=== PATIENT | female | born 1995 | race American Indian/Alaskan Native ===

== ENCOUNTER 2019-05-16 21:18 | Emergency (ER) | payer MEDICAID ==
[2019-05-17 00:27] LABS: Basophils % (Auto) 0.3 % (0.0-1.8); Eosinophils # (Auto) 0.1 K/mm3 (0.0-0.4); Eosinophils % (Auto) 0.7 % (0.0-4.3); Hematocrit 35.2 % (30.3-42.9); Hemoglobin 12.2 gm/dl (10.1-14.3); Lymphocytes # (Auto) 1.2 K/mm3 (1.2-5.4); Lymphocytes % (Auto) 14.6 % (13.4-35.0); Mean Corpuscular HGB Conc 35 % (30-34); Mean Corpuscular Volume 96 fl (79-97); Monocytes # (Auto) 1.3 K/mm3 (0.0-0.8); Monocytes % (Auto) 14.7 % (0.0-7.3); Platelet Count 179 K/mm3 (140-440); Red Blood Count 3.67 M/mm3 (3.65-5.03); Red Cell Distribution Width 12.7 % (13.2-15.2)
--- NOTE | 2019-05-17 00:33 | Ultrasound Report ---
OB Ultrasound HISTORY: abdominal pain. TECHNIQUE: Grayscale and color imaging performed. COMPARISON: None FINDINGS: There is a single viable intrauterine gestation which is breech in presentation with heart rate of 152 bpm. Overall EGA is 14 weeks and 3 days by ultrasound compared to 14 weeks and 5 days by clinical age. Estimated delivery date is 11/11/2019. The cervix measures 5.4 cm in length. Placenta is anterior and right lateral. The WU is 5 cm. IMPRESSION: Single viable intrauterine gestation as above. Signer Name: Emil Palumbo MD Signed: 05/17/2019 12:29 AM Workstation Name: [id number]
[2019-05-17] MEDS ORDERED: ACETAMINOPHEN 500 MG TAB PO ONE (01:32)
--- NOTE | 2019-05-17 02:11 | XRay Report ---
Rib series-3 views INDICATION: Left rib pain- fall down the stairs. COMPARISON: None. IMPRESSION: No acute osseous or soft tissue abnormality. Clear lungs with normal heart size. Signer Name: Emil Palumbo MD Signed: 05/17/2019 2:06 AM Workstation Name: [id number]
[2019-05-17 02:43] LABS: Bilirubin,Urine NEG (Negative); Blood,Urine NEG (Negative); Color,Urine Yellow (Yellow); Mucus,Urine 3+ /HPF; Protein,Urine <15 mg/dL mg/dL (Negative); Urobilinogen,Urine < 2.0 mg/dL (<2.0)
--- NOTE | 2019-05-17 02:50 | Emergency Department Report ---
ED Fall HPI - General Chief Complaint: Fall Stated Complaint: PREG Source: patient Mode of arrival: Ambulatory - History of Present Illness Initial Comments: Patient is a A0 23-year-old -U[place]and[place] female with no past medical history and who is approximately 14 weeks gestation who presents to the ED with a complaint of acute onset persistent left lower quadrant abdominal pain and l eft lateral chest wall pain under pain after she slipped and fell down distress when cutting household goods about 6 hours ago. Patient states that the pain has worsened in the last 2 hours especially with any movement or inhalation or any physical activity. Patient denies loss of consciousness, head and neck injuries, back pain, hematuria, hemoptysis, vaginal bleeding, dizziness, syncope, nausea and vomiting, numbness and tingling or weakness in upper or lower extremities bilaterally or headache. 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 denies: headache, neck pain, numbness, weakness, shortness of breath, hematuria, unable to walk, lightheaded, vertigo, confusion - Related Data Previous Rx's Medication Instructions Recorded Last Taken Type Acetylcysteine [Cetylev] 500 mg PO BID #10 tablet.eff 11/22/15 Unknown Rx valACYclovir [Valtrex] 500 mg PO BID #20 tab 12/20/17 Unknown Rx Cyclobenzaprine [Flexeril] 10 mg PO Q8H PRN #15 tablet 05/17/19 Unknown Rx Allergies Allergy/AdvReac Type Severity Reaction Status Date / Time No Known Allergies Allergy Unverified 08/20/13 16:14 ED Review of Systems ROS: Stated complaint: WKS PREG Other details as noted in HPI Constitutional: denies: chills, fever Eyes: denies: eye pain, eye discharge, vision change ENT: denies: ear pain, throat pain Respiratory: denies: cough, shortness of breath, wheezing Cardiovascular: chest pain (left lateral chest pain). denies: palpitations Endocrine: no symptoms reported Gastrointestinal: abdominal pain (LLQ abdominal pain from the fall). denies: nausea, diarrhea Genitourinary: denies: urgency, dysuria, discharge Musculoskeletal: denies: back pain, joint swelling, arthralgia Skin: denies: rash, lesions Neurological: denies: headache, weakness, paresthesias Psychiatric: denies: anxiety, depression Hematological/Lymphatic: denies: easy bleeding, easy bruising ED Past Medical Hx - Past Medical History Previous Medical History?: Yes Hx Congestive Heart Failure: No Hx Diabetes: No Hx Arthritis: (Grandmother) Hx Psychiatric Treatment: Yes (anxiety) Hx Asthma: No Hx COPD: No Hx HIV: No Additional medical history: bronchitis - Surgical History Past Surgical History?: No - Social History Smoking Status: Former Smoker Substance Use Type: None - Medications Home Medications: Home Medications Medication Instructions Recorded Confirmed Last Taken Type Acetylcysteine [Cetylev] 500 mg PO BID #10 tablet.eff 11/22/15 Unknown Rx valACYclovir [Valtrex] 500 mg PO BID #20 tab 12/20/17 Unknown Rx Cyclobenzaprine [Flexeril] 10 mg PO Q8H PRN #15 tablet 05/17/19 Unknown Rx ED Physical Exam - General Limitations: No Limitations General appearance: alert, in no apparent distress - Head Head exam: Present: atraumatic, normocephalic, normal inspection - Eye Eye exam: Present: normal appearance, PERRL, EOMI Pupils: Present: normal accommodation - ENT ENT exam: Present: normal exam, normal orophraynx, mucous membranes moist, TM's normal bilaterally, normal external ear exam - Neck Neck exam: Present: normal inspection, full ROM. Absent: tenderness, lymphadenopathy - Respiratory Respiratory exam: Present: normal lung sounds bilaterally, chest wall tenderness (left lateral rib cage and chest tenderness). Absent: respiratory distress, wheezes, rales, rhonchi, accessory muscle use - Cardiovascular Cardiovascular Exam: Present: regular rate, normal rhythm, normal heart sounds. Absent: systolic murmur, diastolic murmur, rubs, gallop - GI/Abdominal GI/Abdominal exam: Present: soft, tenderness (mildly tender LLQ area), normal bowel sounds. Absent: distended, guarding, rebound, hyperactive bowel sounds, organomegaly - Extremities Exam Extremities exam: Present: normal inspection, full ROM, normal capillary refill - Back Exam Back exam: Present: normal inspection, full ROM. Absent: tenderness, muscle spasm, paraspinal tenderness, vertebral tenderness - Neurological Exam Neurological exam: Present: alert, oriented X3, CN II-XII intact, normal gait, reflexes normal - Psychiatric Psychiatric exam: Present: normal affect, normal mood - Skin Skin exam: Present: warm, dry, intact, normal color. Absent: rash ED Course Vital Signs 05/16/19 05/17/19 05/17/19 21:35 01:14 01:27 Temperature 99.8 F H 98.2 F Pulse Rate 80 68 Respiratory 18 16 16 Rate Blood Pressure 96/50 95/51 O2 Sat by Pulse 100 100 Oximetry ED Medical Decision Making - Lab Data Result diagrams: 05/16/19 23:35 - Radiology Data Radiology results: report reviewed, [place] [address] Ultrasound Report Signed Patient: MERY FIELDS MR#: [id number] : 1995 Acct:[id number] Age/Sex: 23 / F ADM Date: 05/16/19 Loc: ED Attending Dr: Ordering Physician: TATY BUTTERFIELD MD Date of Service: 05/16/19 Procedure(s): US OB >= 14 weeks Fetus Accession Number(s): [id number] cc: TATY BUTTERFIELD MD OB Ultrasound HISTORY: abdominal pain. TECHNIQUE: Grayscale and color imaging performed. COMPARISON: None FINDINGS: There is a single viable intrauterine gestation which is breech in presentation with heart rate of 152 bpm. Overall EGA is 14 weeks and 3 days by ultrasound compared to 14 weeks and 5 days by clinical age. Estimated delivery date is 11/11/2019. The cervix measures 5.4 cm in length. Placenta is anterior and right lateral. The WU is 5 cm. IMPRESSION: Single viable intrauterine gestation as above. Signer Name: Emil Palumbo MD Signed: 05/17/2019 12:29 AM Workstation Name: [id number] Transcribed By: TIERNEY Dictated By: Emil Palumbo MD Electronically Authenticated By: Emil Palumbo MD Signed Date/Time: 05/17/1928 DD/ Findings [facility] [address] [place] [address] XRay Report Signed Patient: MERY FIELDS MR#: [id number] : 1995 Acct:[id number] Age/Sex: 23 / F ADM Date: 05/16/19 Loc: ED Attending Dr: Ordering Physician: LORENZO ODOM Date of Service: 05/17/19 Procedure(s): XR ribs UNI w PA chest 3+V LT Accession Number(s): [id number] cc: LORENZO ODOM Fluoro Time In Minutes: Rib series-3 views INDICATION: Left rib pain- fall down the stairs. COMPARISON: None. IMPRESSION: No acute osseous or soft tissue abnormality. Clear lungs with normal heart size. Signer Name: Emil Palumbo MD Signed: 05/17/2019 2:06 AM Workstation Name: [id number] Transcribed By: JW Dictated By: Emil Palumbo MD Electronically Authenticated By: Emil Palumbo MD Signed Date/Time: 05/17/19205 DD/ 4 TD/TT: - Medical Decision Making This is a 23-year-old female who is approximately 14 weeks gestation who presented to the ED with left lateral rib pain, chest pain and left lower abdominal pain after she slipped and fell down this test fall as ago. In the ED, patient is alert and oriented 3 and is not in distress. Patient was treated for pain with Tylenol. Patient's abdomen was shielded and left rib and chest x-rays showed no acute rib fractures or any cardiopulmonary monitors, pneumonitis, pleural effusion or pneumothorax. Transvaginal ultrasound shows a single live IUP of approximately 14 weeks and 3 days, in a breech position and with a heart rate of 152 bpm. On reevaluation, patient's pain is well controlled with medications. Patient was discharged home on muscle relaxants and advised to take Tylenol as needed for pain. 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 - Differential Diagnosis contusion; rib fractures; pneumothorax; pleural effusion; abdominal pain Critical care attestation.: If time is entered above; I have spent that time in minutes in the direct care of this critically ill patient, excluding procedure time. ED Disposition Clinical Impression: Contusion of chest wall Qualifiers: Encounter type: initial encounter Laterality: left Qualified Code(s): S20.212A - Contusion of left front wall of thorax, initial encounter Contusion of rib on left side Qualifiers: Encounter type: initial encounter Qualified Code(s): S20.212A - Contusion of left front wall of thorax, initial encounter Abdominal muscle strain Qualifiers: Encounter type: initial encounter Qualified Code(s): S39.011A - Strain of muscle, fascia and tendon of abdomen, initial encounter Disposition: DC-01 TO HOME OR SELFCARE Is pt being admited?: No Does the pt Need Aspirin: No Condition: Stable Instructions: Muscle Strain (ED), Contusion in Adults (ED), Thoracic Pain (ED), Abdominal Pain in (ED) Additional Instructions: Take medication and food, drink plenty of fluids and follow-up with her primary care physician in 5-7 days for reevaluation. Return to the ED immediately if symptoms get worse. Prescriptions: Cyclobenzaprine [Flexeril] 10 mg PO Q8H PRN #15 tablet PRN Reason: Muscle Spasm Referrals: KERON ESPINAL MD [Staff Physician] - 3-5 Days Forms: Work/School Release Form(ED) Time of Disposition: 02:53 Print Language: CROATIAN
[2019-05-17 04:03] VITALS: BP 115/68
== END 2019-05-17 03:28 | disposition home or self-care (01) ==
LOC: ED 21:18
DX: O9A.212 Injury, poisoning and certain other consequences of external causes complicating pregnancy, second trimester (principal); S20.212A Contusion of left front wall of thorax, initial encounter; S39.011A Strain of muscle, fascia and tendon of abdomen, initial encounter; O99.311 Alcohol use complicating pregnancy, first trimester; F41.9 Anxiety disorder, unspecified; Z79.899 Other long term (current) drug therapy; Z3A.14 14 weeks gestation of pregnancy
CPT/HCPCS: 36415; 76805; 81001; 84702; 85025

== ENCOUNTER 2020-10-02 15:53 | Emergency (ER) | payer MEDICAID ==
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
[2020-10-02 18:50] LABS: Bacteria,Urine 1+ /HPF (Negative); Bilirubin,Urine NEG (Negative); Blood,Urine LG (Negative); Color,Urine Red (Yellow); Mucus,Urine FEW /HPF
[2020-10-02 18:51] LABS: HCG Qualitative,Urine Negative (Negative); WBC,Urine > 182.0 /HPF (0.0-6.0)
[2020-10-02 19:11] VITALS: BP 105/40
== END 2020-10-02 19:09 | disposition home or self-care (01) ==
LOC: ED 15:53
DX: S02.2XXA Fracture of nasal bones, initial encounter for closed fracture (principal); N39.0 Urinary tract infection, site not specified; F41.9 Anxiety disorder, unspecified; Z87.891 Personal history of nicotine dependence; Z79.899 Other long term (current) drug therapy; X58.XXXA Exposure to other specified factors, initial encounter; Y93.89 Activity, other specified; Y92.89 Other specified places as the place of occurrence of the external cause; Y99.8 Other external cause status
CPT/HCPCS: 70486; 81001; 81025